=== PATIENT | male | born 1940 | race Caucasian/White ===

== ENCOUNTER 2019-04-07 00:38 | Outpatient (CLI) | payer MEDICARE, SELFPAY ==
--- NOTE | 2019-04-07 14:37 | DI.RAD_ITS ---
EXAM: XR CERVICAL SPINE COMP 4-5V INDICATION: DJD, WORSENING PAIN X 3 WEEKS, DEBILITATION, SPRAIN. COMPARISON: No exams were available for comparison TECHNIQUE: 2D digital imaging was performed. FINDINGS: There are severe degenerative bony changes in association with disc narrowing at C5-C6 where there is endplate sclerosis and hypertrophic spurring. Narrowing of the neural canal is noted at this level. The neural foramina are widely patent. Note is also made of some disc space narrowing at C4, C6, C7. The posterior elements appear intact. 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 The odontoid is intact and is closely applied to the anterior arch of C1. IMPRESSION: Changes involving the cervical spine are demonstrated. There is prominent hypertrophic spurring assoc iated with disc space narrowing at C5-C6. Please see the above discussion.
== END 2019-04-07 00:58 ==
PROVIDERS: Visit Provider Family Medicine
DX: M54.2 Cervicalgia (principal); M50.321 Other cervical disc degeneration at C4-C5 level; M50.322 Other cervical disc degeneration at C5-C6 level
CPT/HCPCS: 72050